=== PATIENT | male | born 1945 | race African-American/Black ===

== ENCOUNTER 2021-04-04 11:57 | Emergency (ER) | payer MEDICARE, MEDICAID ==
[~2021-04-04] VITALS: Ht 167.6 cm; Wt 57.0 kg
[~2021-04-04 11:57] MED LIST: AMLO10TA80 PO; ASPI-986 PO; CELE200C PO; OXYC80TA40 PO; ZOLP12.52 PO
[2021-04-04 11:58] VITALS: BP 135/81
[2021-04-04] MEDS ORDERED: OXYCODONE HCL/ACETAMINOPHEN 5/325MG TABLET PO ONE (13:45)
== END 2021-04-04 14:16 | disposition home or self-care (01) ==
LOC: ER 12:09
DX: R51.9 Headache, unspecified (principal); I10 Essential (primary) hypertension; V43.52XA Car driver injured in collision with other type car in traffic accident, initial encounter; Y93.89 Activity, other specified; Y92.488 Other paved roadways as the place of occurrence of the external cause
CPT/HCPCS: 99283